=== PATIENT | female | born 1990 ===

== ENCOUNTER 2018-09-12 04:24 | Inpatient (IN) | payer MEDICAID ==
[2018-09-12 04:49] VITALS: BMI 40.7
[2018-09-12 05:17] LABS: SQUAMOUS EPITHIAL 4 /hpf (0-5); URINE BACTERIA RARE (<OCC); URINE BILIRUBIN NEGATIVE (NEGATIVE); URINE BLOOD NEGATIVE (NEGATIVE); URINE CALCIUM OXALATE CRYSTALS OCC /hpf (<OCC); URINE CLARITY Clear (Clear); URINE COLOR Yellow (YELLOW); URINE GLUCOSE (UA) NORMAL (Normal); URINE LEUKOCYTE ESTERASE NEG Leu/uL (Negative); URINE PROTEIN NEGATIVE (NEGATIVE); URINE UROBILINOGEN NORMAL mg/dL (0.2-1.0)
[2018-09-12 05:20] LABS: BASO % 0.1 % (0.0-2.0); EOS % 0.6 % (0.0-4.0); HEMOGLOBIN 10.1 g/dL (11.0-16.0); LYMPH % 33.7 % (20.0-40.0); MEAN CELL VOLUME 84.5 fL (81.0-99.0); MEAN CORPUSCULAR HEMOGLOBIN 28.6 pg (27.0-31.0); MEAN CORPUSCULAR HGB CONC 33.8 g/dL (33.0-37.0); MONO # 0.4 K/uL (0.0-0.8); NEUT # 3.5 K/uL (1.8-7.0); NEUT % 58.6 % (50.0-75.0); RBC 3.53 Mil/uL (3.80-5.20); RED CELL DISTRIBUTION WIDTH 14.8 % (11.5-14.5); WHITE BLOOD COUNT 5.9 K/uL (4.8-10.8)
[2018-09-12] MEDS ORDERED: Sodium Citrate/Citric Acid 15 ml Sol PO ONE (05:26)
[2018-09-12] MEDS ORDERED: cefOXitin IV 2 gm in Dextrose 2 GM/50 ML BAG IVPB ONE (05:26)
[2018-09-12] MEDS ORDERED: Lactated Ringer's 1,000 ML IV ONE (05:26)
[2018-09-12 05:35] LABS: ALB/GLOB RATIO 1.1 (1.0-2.1); ALBUMIN 3.5 g/dL (3.5-5.0); ALT/SGPT 17 U/L (9-52); AST/SGOT 18 U/L (14-36); BLOOD UREA NITROGEN 10 mg/dL (7-17); CALCIUM 8.9 mg/dl (8.6-10.4); GFR NON-AFRICAN AMERICAN > 60
[2018-09-12] MEDS ORDERED: Oxytocin 20 units in LR 2,000 ML IV ONE (05:36)
[2018-09-12] MEDS ORDERED: Bupivacaine HCl 15 mg/2 ml Spinal Inj ONE (06:32)
[2018-09-12] MEDS ORDERED: Morphine 1 mg/ml preservative-free Inj(Duramorph) ONE (06:33)
[2018-09-12] MEDS ORDERED: EPINEPHrine 1 mg/ml (1:1000) Inj ONE (06:35)
[2018-09-12] MEDS ORDERED: Oxytocin 10 Units/ml Inj ONE (07:00)
[2018-09-12] MEDS ORDERED: Oxycodone/Acetaminophen 5/325 mg Tab PO PRN (07:47)
[2018-09-12] MEDS ORDERED: cefOXitin IV 2 gm in Dextrose 2 GM/50 ML BAG IVPB SCH (09:00)
[2018-09-12] MEDS: Prenatal Multivit/Folic Acid/Iron Tab PO SCH (12:53)
--- NOTE | 2018-09-12 14:34 | OP ---
PROCEDURE DATE: 09/12/2018 PREOPERATIVE DIAGNOSES: Intrauterine at 38 weeks, previous section x2, in early labor, desires sterilization. POSTOPERATIVE DIAGNOSES: Intrauterine at 38 weeks, previous section x2, in early labor, desires sterilization. PROCEDURE: :Lower segment section with bilateral salpingectomy. FINDINGS: A live male , Apgars 9 at one minute, 9 at 5 minutes with normal tubes and ovaries. SURGEON: Yogesh العلي MD. HOUSECLEANER FLOOR: Koko Vargas MD. COMPLICATIONS: Nil. INDICATIONS: After the risks, benefits, and alternatives of the planned procedures including, but not limited to infection, hemorrhage, deep vein thrombosis, atelectasis, pneumonia, pulmonary embolism, damage to the bladder, damage to the ureter, renal insufficiency, renal failure, wound infection, wound dehiscence, incisional hernia, keloid formation, damage to the large and small intestine, damage to the inferior vena cava and the aorta requiring extensive repair, anesthesia complications, electrolyte imbalance, possibility of , fluid overload, cerebral edema, embolism, and other complications that were discussed, but are not listed above, have been explained to the patient and all her questions answered. The informed consent was obtained. Risk of tubal ligation including risks of ectopic pregnancies were also extensively discussed with the patient. DESCRIPTION OF PROCEDURE: The patient was taken to the operating room in a stable condition. Under a suitable level of spinal analgesia, she was prepped and draped in a sterile fashion after having been placed in a supine position. The abdomen was entered through a Pfannenstiel-type incision, carried through the subcutaneous tissues to the fascia. Fascia was opened transversely and dissected over rectus abdominis musculature. Rectus abdominis musculature was then in the midline to remove the parietal peritoneum which was entered sharply and incised superiorly and inferiorly. The bladder peritoneum was then entered through a curvilinear fashion and dissected off the lower uterine segment. The lower uterine segment was entered through a curvilinear incision. The surgeon's fingers were inserted into the lower uterine segment to grasp the 's head, which was lying in a right occipital anterior position. The head was easily delivered. Nose and mouth were suctioned free of amniotic fluid, and the remainder of the was delivered without any difficulty. Cord was doubly clamped and cut, and the baby was handed over to the pediatricians who were in attendance. Cord blood was collected with Pitocin running. Placenta was manually removed. The endometrium was then cleaned free of remaining membranes and clots. The uterine incision was then closed in layers with the first layer being a running interlocking layer using #1 chromic and the second layer being used to imbricate the first layer. Hemostasis was good. The right and left fallopian tubes were then resected completely using a LigaSure starting at the cornua and resecting the entire mesosalpinx to resect both the right and left fallopian tubes which was submitted for pathology. At the end of the procedure, abdomen was then irrigated using copious amounts of saline. The saline was evacuated. The abdomen was then closed in layers with 0 chromic to the parietal peritoneum. Rectal muscles were reapproximated using interrupted sutures of 0 chromic. Fascia was reapproximated using two separate running sutures of 0 Vicryl to meet in the midline. Subcutaneous tissues were reapproximated using interrupted sutures of 0 plain, and the initial skin incision was reapproximated using 4-0 Vicryl in a subcuticular fashion. Estimated blood loss for the procedure was 250 mL. Pad, needle, and instrument counts were correct x2. There were no complications. Ygoesh العلي MD
--- NOTE | 2018-09-12 17:53 | HP ---
HISTORY OF PRESENT ILLNESS: The patient is a 28-year-old female with a due date of 09/21/2018 of previous section x2, who desires sterilization and is coming in for repeat section. The patient is 6, para 3 with a history of two previous section and one normal spontaneous vaginal delivery and two termination of pregnancies. Current course has been essentially unremarkable. Medical histories are unremarkable. ALLERGIES: NONE. SOCIAL HISTORY: She does not smoke or drink. MEDICATIONS: Currently, she is not taking any calcium or airborne medication. PHYSICAL EXAMINATION: VITAL SIGNS: Her blood pressure is 110/70, pulse is 72, respiratory rate is 20, and temperature is 98.8. HEENT: Head, ear, nose, and throat examination are within normal. CHEST: Clear. CARDIAC: Normal heart sounds without any murmurs. LUNGS: Clear. BREAST: Revealed no masses. ABDOMEN: Symphysis-fundal height is 38 cm, longitudinal lie vertex. heart tones are normal. PELVIC: She has normal vulva. Bartholin, urethra and [place]'s glands are within normal. Cervix is 2 cm, 50%. Tracing shows contractions every five minutes. ADMITTING DIAGNOSES: Intrauterine at 38 weeks, in early labor, previous section x2 and desired sterilization. PLAN: To perform a lower segment section. Prior to being scheduled for the surgical procedure, the patient underwent an informed consent. Discussion and education session with me in the hospital lasted for approximately 45 minutes during which time I explained to her in understandable terms the following; the nature and extent of the disease process and the nature and extent of the contemplated operation. I also explained to her the risk and potential complication of the operative procedure to include but not limited to infection, hemorrhage, deep vein thrombosis, atelectasis, pneumonia, pulmonary embolism, damage to bladder, damage to ureter, renal insufficiency, renal failure, failure risk of sterilization, ectopic and other complications that were discussed, but are not listed above. Also discussed with the patient the anticipated benefits and results of the surgery including a conservative estimate of the successful outcome. I discussed with the patient what the operation would not accomplish. I informed the patient of the possibility of unanticipated pathology requiring a more extensive procedure. All other questions from the patient were encouraged, welcomed, and answered to her satisfaction. Patient was given the opportunity to store her own blood for use and autologous blood transfusion and she declined. Yogesh العلي MD
[2018-09-12] MEDS: cefOXitin IV 2 gm in Dextrose 2 GM/50 ML BAG IVPB SCH (22:00)
[2018-09-13] MEDS: cefOXitin IV 2 gm in Dextrose 2 GM/50 ML BAG IVPB SCH ×2 (05:54→13:35)
[2018-09-13 08:24] LABS: HEMOGLOBIN 10.7 g/dL (11.0-16.0); MEAN CELL VOLUME 85.4 fL (81.0-99.0); MEAN CORPUSCULAR HGB CONC 33.9 g/dL (33.0-37.0); MEAN PLATELET VOLUME 10.3 fL (7.2-11.7); RBC 3.68 Mil/uL (3.80-5.20); RED CELL DISTRIBUTION WIDTH 15.2 % (11.5-14.5); WHITE BLOOD COUNT 8.7 K/uL (4.8-10.8)
[2018-09-13] MEDS: Enoxaparin 40 mg Syringe SC SCH (10:09)
[2018-09-13] MEDS: Prenatal Multivit/Folic Acid/Iron Tab PO SCH (10:11)
[2018-09-13] MEDS: Simethicone 80 mg Chewtab PO SCH ×3 (10:47→21:00)
--- NOTE | 2018-09-13 14:35 | PN ---
DATE: 09/13/2018 SUBJECTIVE: The patient has no complaints. OBJECTIVE: VITAL SIGNS: Stable. She is afebrile. CHEST: Clear. CARDIAC: Normal heart sounds without any murmurs. LUNGS: Clear. ABDOMEN: Incision is clean and intact. Bowel sounds are normal. EXTREMITIES: Nontender with no evidence of deep vein thrombosis. GENITOURINARY: Lochia is scant. ASSESSMENT: The patient is status post section day #1. PLAN: To ambulate the patient and advance diet as tolerated. Yogesh العلي MD
[2018-09-14 08:26] VITALS: RESP 20
[2018-09-14] MEDS: Prenatal Multivit/Folic Acid/Iron Tab PO SCH (10:21)
[2018-09-14] MEDS: Enoxaparin 40 mg Syringe SC SCH (10:21)
--- NOTE | 2018-09-14 11:13 | OBPPN ---
Datetime: 09/14/2018 11:08 PP Pain Prov: Within normal limits PP Nausea Prov: Denies PP Flatus Prov: Yes PP BM Prov: Yes PP Breasts Prov: Normal PP Heart Prov: Normal PP Lungs Prov: Normal PP Abdomen/Uterus Prov: Normal PP Lochia Prov: Normal PP Vulva/Perineum Prov: Normal PP CVA Tenderness Prov: Normal PP Extremities Prov: Normal PP Impression Prov: Normal progression PP Plan Prov: Continue present management PP Progress Note Prov: PT DOING WELL. NO COMPLAINTS, TOLERATING PO DIET, DENIES NAUSEA AND VOMITING, +FLATUS, +BM, VSS: AFEBRILE HGB: 10.7 A/P S/P RLTCS POD#2 - VSS; AFEBRILE - ANEMIA: START FERROUS SULFATE AND COLACE. - CONTINUE POST OP CARE. Vital Signs Provider PP: Reviewed
[2018-09-14] MEDS: Simethicone 80 mg Chewtab PO SCH ×3 (11:50→21:52)
[2018-09-15 08:18] VITALS: BP 109/65; PULSE 78; O2SAT 97
[2018-09-15] MEDS: Simethicone 80 mg Chewtab PO SCH (09:47)
[2018-09-15] MEDS: Prenatal Multivit/Folic Acid/Iron Tab PO SCH (09:47)
[2018-09-15] MEDS: Enoxaparin 40 mg Syringe SC SCH (09:49)
--- NOTE | 2018-09-15 14:26 | OBDCSUM ---
Datetime: 09/15/2018 10:10 Discharged to, Provider: Home Follow up at, Provider: Disch Instr Activity: Normal activity Disch Instr Diet: Regular Discharge Instructions, Provider: Routine instructions given Discharge Diagnosis, Provider: Term Delivered Discharge Time: 09/15/2018 10:00 Follow up in weeks, Provider: 1 week Disch Activity Restrictions: No exercising; No lifting; No driving; Minimize walking; Minimize stair -climbing; No sexual activity; Nothing in vagina - New [place], tampons, douche Discharge Comment, Provider: POD # 3 S/P Repeat C/S with BTL PP H_H 10.7/31.5/ A+ Incision healing well, clean and dry Eating, voiding and ambulating well Stable and Satisfactory condition and recovery Discharged home with instructions and Rx for Motrin and Percocet, as per Dr. Bolivar Advised to increase po water intake, continue PNV daily for 3-4 months and take meds as prescribed Continue pelvic rest x 6-8 weeks Discharge Diagnosis Prov Other: S/P Permanent Sterilization
[2018-09-15 18:54] VITALS: TEMP 99
--- NOTE | 2018-09-15 19:39 | PN ---
DATE: 09/15/2018 SUBJECTIVE: The patient has no complaints. She had a bowel movement. OBJECTIVE: VITAL SIGNS: Stable. She is afebrile. CHEST: Clear. CARDIAC: Exam reveals normal heart sounds without any murmurs. LUNGS: Clear. BREASTS: Reveal no masses. ABDOMEN: Incision is clean and intact. Bowel sounds are normal. EXTREMITIES: Nontender. Homans sign is negative. She has no evidence of DVT. ASSESSMENT: The patient is status post section, day #2. PLAN: To discharge the patient on Keflex 500 mg four times daily x7 days and Tylenol No. 3 one tablet every 4 hours p.r.n. for a total of 40 tablets, will be followed up in the office in 1 week. Yogesh العلي MD
--- NOTE | 2018-09-16 04:02 | DS ---
The patient is a 28-year-old female at 38 weeks 5 days, previous section x2, in labor, who was admitted, underwent section. She delivered a live male , Apgars 9 at one minute and 9 at five minutes with normal tubes and ovaries. The patient also underwent bilateral tubal ligation. She was discharged home on postoperative day #3 on Keflex 1200 mg 4 times daily x7 days and Tylenol No. 3 one tablet every 4 hours p.r.n. for a total of 40 tablets, to be followed up in the office in one week. Yogesh العلي MD
--- NOTE | 2018-09-16 13:51 | OBDS ---
DELIVERY PERSONNEL Delivery Doctor: Jerald العلي MD Scrub Nurse: Carley Paul Sole Conditioner: Esther Pineda RN Anesthesiologist: Jerald Buckley MD MATERNAL INFORMATION Delivery Anesthesia: Spinal Medications in Delivery: Pitocin, Hemabate Estimated Blood Loss (ml): 250 Placenta Cultured: Yes Maternal Complications: None RN Comments: live baby boy born via repeat c/section LABOR SUMMARY EDC: 09/21/2018 00:00 No. Babies in Womb: 1 Attempted: No Labor Anesthesia: None LABOR INFORMATION Reason for Induction: Not Applicable Steroids Given: None Reason Steroids Not Administered: Not Applicable STAGES OF LABOR Stage 3 hrs: 0 Stage 3 min: 1 VAGINAL DELIVERY Episiotomy: None Laceration Extension: N/A Laceration Type: None CSECTION DELIVERY Primary Indication: Repeat Elective CSection Urgency: Elective CSection Incidence: Repeat Labor: No Labor CSection Incision: Lower Uterine Transverse Other Sterilization Procedure: bilateral sub BABY A INFORMATION Delivery Date/Time: 09/12/2018 06:55 Method of Delivery: Born in Route : No : N/A Forceps: N/A Vacuum Extraction: N/A Shoulder Dystocia : No SHOULDER DYSTOCIA BABY A Infant Delivery Date/Time: 09/12/2018 06:55 PRESENTATION/POSITION BABY A Presentation: Cephalic Cephalic Presentation: Vertex PLACENTA INFORMATION BABY A Placenta Delivery Time : 09/12/2018 06:56 Placenta Method of Delivery: Manual Removal Placenta Status: Delivered SCORES BABY A Heart Rate 1 min: >100 bpm Resp Effort 1 min: Good Cry Reflex Irritability 1 min: Cough or Sneeze or Pulls Away Muscle Tone 1 min: Active Motion Color 1 min: Body [place], Extremities Blue SCORE 1 MIN: 9 Heart Rate 5 min: >100 bpm Resp Effort 5 min: Good Cry Reflex Irritability 5 min: Cough or Sneeze or Pulls Away Muscle Tone 5 min: Active Motion Color 5 min: Body [place], Extremities Blue SCORE 5 MIN: 9 INFANT INFORMATION BABY A Gestational Age at Delivery: 38.5 Gestational Status: Term Outcome : Liveborn Infant Condition : Stable Sex: Male IDENTIFICATION/MEDS BABY A ID Band Number: [id number] ID Band Location: Left Leg; Left Arm Sensor Applied: Yes Sensor Number: [id number] Sensor Location : Cord Clamp WEIGHT/LENGTH BABY A Infant Birthweight (gms): 2895 Infant Weight (lb): 6 Infant Weight (oz): 6 Length Inches: 19.50 Length cms: 49.5 CORD INFORMATION BABY A No. Cord Vessels: 3 Nuchal Cord : N/A Cord Blood Taken: Yes (Annotations: Data stored by [facility] on behalf of user) Infant Suction: Mouth; Nose ASSESSMENT BABY A Complications: None Physical Findings at Delivery: Within Normal Limits Respirations: Appears Normal Clinical Systems Educator/ALS Called : No Care By: Transferred To: Remains with Mother
== END 2018-09-15 10:10 | disposition home or self-care (01) | DRG 370 ==
LOC: C.EROB 04:24 → C.4D 04:55 → C.4M 09:46
PROVIDERS: ADMIT Obstetrics & Gynecology Reproductive Endocrinology; ATTEND Obstetrics & Gynecology Reproductive Endocrinology
PROC: 0UB70ZZ Excision of Bilateral Fallopian Tubes, Open Approach (ICD-10-PCS; principal; 2018-09-12)
PROC: 10D00Z1 Extraction of Products of Conception, Low, Open Approach (ICD-10-PCS; 2018-09-12)
DX: O34.211 Maternal care for low transverse scar from previous cesarean delivery (principal); O99.02 Anemia complicating childbirth; D64.9 Anemia, unspecified; Z30.2 Encounter for sterilization; Z37.0 Single live birth; Z3A.38 38 weeks gestation of pregnancy